=== PATIENT | female | born 1990 | race African-American/Black ===

== ENCOUNTER 2016-11-12 22:57 | Emergency (ER) | payer SELFPAY ==
--- NOTE | 2016-11-13 02:02 | ER Document Report ---
ED Extremity Problem, Lower - General Chief Complaint: Leg Swelling Stated Complaint: SWOLLEN LEG Mode of Arrival: Ambulatory Information source: Patient Notes: This is a 26-year-old healthy female who presents to the ER for evaluation of left ankle pain and swelling. No history of injury or trauma. She states that her ankle has been swollen for about 2 weeks. She does not have a primary care physician. No fevers, chills, systemic symptoms. No calf/upper leg pain or swelling. No chest pain or SOB. TRAVEL OUTSIDE OF THE [place] IN LAST 30 DAYS: No - Related Data Allergies/Adverse Reactions: No Known Allergies Allergy (Unverified 11/12/16 23:12) Past Medical History - General Information source: Patient - Social History Smoking Status: Never Smoker Chew tobacco use (# tins/day): No Frequency of alcohol use: Social Drug Abuse: None Family History: Reviewed & Not Pertinent Patient has suicidal ideation: No Patient has homicidal ideation: No - Medical History Medical History: Negative Renal/ Medical History: Denies: Hx Peritoneal Dialysis Surgical Hx: Negative Review of Systems - Review of Systems Constitutional: No symptoms reported. denies: Chills, Fever EENT: No symptoms reported Cardiovascular: No symptoms reported Respiratory: No symptoms reported. denies: Hurts to breathe, Short of breath Gastrointestinal: No symptoms reported Musculoskeletal: See HPI Skin: No symptoms reported Neurological/Psychological: No symptoms reported Physical Exam - Vital signs Vitals: Temp Pulse Resp BP Pulse Ox 98.3 F 70 16 142/67 H 100 11/12/16 23:06 11/12/16 23:06 11/12/16 23:06 11/12/16 23:06 11/12/16 23:06 - Notes Notes: PHYSICAL EXAMINATION: GENERAL: Well-appearing, well-nourished and in no acute distress. Pleasant and conversant HEAD: Atraumatic, normocephalic. EYES: Pupils equal round and reactive to light, extraocular movements intact, sclera anicteric, conjunctiva are normal. ENT: nares patent, oropharynx clear without exudates. Moist mucous membranes. NECK: Normal range of motion, supple without lymphadenopathy LUNGS: Breath sounds clear to auscultation bilaterally and equal. No wheezes rales or rhonchi. HEART: Regular rate and rhythm without murmurs ABDOMEN: Soft, nontender, normoactive bowel sounds. No guarding, no rebound. No masses appreciated. EXTREMITIES: Normal range of motion. Mild edema to L ankle, nontender to palpation, no warmth or discoloration, pulses intact, cap refill intact. No calf edema, TTP, or palpable cords. FROM to knee and hip without pain. NEUROLOGICAL: Cranial nerves grossly intact. Normal speech. No gross focal motor or sensory deficits appreciated.. PSYCH: Normal mood, normal affect. SKIN: Warm, Dry, normal turgor, no rashes or lesions noted. Course - Vital Signs Vital signs: Temp Pulse Resp BP Pulse Ox 97.9 F 66 18 128/79 H 99 11/13/16 03:59 11/13/16 03:59 11/13/16 03:59 11/13/16 03:59 11/13/16 03:59 - Laboratory Laboratory results interpreted by me: ddimer: 0.33 Discharge - Discharge Clinical Impression: Left leg swelling Condition: Stable Disposition: HOME, SELF-CARE Additional Instructions: Your x-ray shows no evidence of injury at this time. Your blood work is within normal limits. As discussed please return later today, November 13, 4 year old found to rule out DVT (blood clot) As discussed elevate your leg when able. You may also use an Alexander wrap for support. Please follow up with your primary care physician this week. Forms: Follow-Up Radiology Testing
[2016-11-13 04:05] VITALS: BP 128/79
== END 2016-11-13 03:59 | disposition home or self-care (01) ==
LOC: ER 22:57
DX: R22.42 Localized swelling, mass and lump, left lower limb (principal)
CPT/HCPCS: 36415; 85379; 99284

== ENCOUNTER 2020-09-16 15:45 | Emergency (ER) | payer OTHER ==
[2020-09-16 15:54] VITALS: BP 143/66
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
[2020-09-16] MEDS ORDERED: NAPROXEN 250 MG TABLET PO ONE (16:40)
== END 2020-09-16 17:17 | disposition home or self-care (01) ==
LOC: ER 15:45
DX: S49.92XA Unspecified injury of left shoulder and upper arm, initial encounter (principal); M25.529 Pain in unspecified elbow; M79.639 Pain in unspecified forearm; V49.40XA Driver injured in collision with unspecified motor vehicles in traffic accident, initial encounter; Y93.89 Activity, other specified
CPT/HCPCS: 99283